=== PATIENT | female | born 1990 | race African-American/Black ===

== ENCOUNTER 2017-01-04 07:44 | Emergency (ER) | payer SELFPAY ==
[~2017-01-04] VITALS: Ht 154.9 cm; Wt 67.1 kg
[~2017-01-04 07:44] MED LIST: FLUT1DIS3 IH; NAPR500T PO
[2017-01-04] MEDS ORDERED: IPRATRPIUM/ALBUTEROL 0.5/2.5MG 3 ML NEBU. NEB ONE (08:15)
[2017-01-04] MEDS ORDERED: PREDNISONE 20 MG TABLET PO ONE (08:15)
[2017-01-04] MEDS ORDERED: PRED50TA PO (09:32)
[2017-01-04] MEDS ORDERED: OSEL75CA PO (09:32)
[2017-01-04] MEDS ORDERED: PROAIR HFA8.5 GM INH (09:32)
--- NOTE | 2017-01-04 09:33 | PHYS DOC ---
Past Medical History Past Medical History: Asthma Past Surgical History: No Surgical History Alcohol Use: None Drug Use: None Adult General Chief Complaint Chief Complaint: ASTHMA HPI HPI 26-year-old female presenting to the emergency department today with worsening asthma exacerbation. She comes in by EMS after receiving 2 DuoNeb's in route. She reports having a dry cough with rhinorrhea myalgias fevers and chills at home over the past 4-5 days. She is unsure whether she has had flu exposure recently. Onset today. Location lungs. Duration intermittent. Associated with wheezing. No specific timing present. Review of systems is negative for chest pain abdominal pain nausea vomiting diaphoresis. She denies constipation or diarrhea. All other review of systems is negative unless otherwise noted in history of present illness. Review of Systems Review of Systems SEE ABOVE. Current Medications Current Medications Current Medications Medications (Trade) Dose Ordered Sig/Yao Start Time Stop Time Status Last Admin Dose Admin Albuterol/ Ipratropium (Duoneb) 3 ml 1X ONCE 01/04/17 08:15 01/04/17 08:16 DC 01/04/17 08:19 3 ML Prednisone (Prednisone) 60 mg 1X ONCE 01/04/17 08:15 01/04/17 08:16 DC 01/04/17 08:16 60 MG Allergies Allergies Allergies Coded Allergies Type Severity Reaction Last Updated Verified No Known Drug Allergies 07/24/15 No Physical Exam Physical Exam Constitutional: Well developed, well nourished, non-toxic appearance. [] HENT: Normocephalic, atraumatic, bilateral external ears normal, oropharynx moist, no oral exudates, nose normal. Eyes: PERRLA, EOMI, conjunctiva normal, no discharge. [] Neck: Normal range of motion, no tenderness, supple, no stridor. Cardiovascular:Heart rate regular rhythm, no murmur [] Lungs & Thorax: Initial exam shows wheezing bilaterally without crackles. Mildly increased work of breathing. Abdomen: Bowel sounds normal, soft, no tenderness, no masses, no pulsatile masses. [] Skin: Warm, dry, no erythema, no rash. Back: No tenderness, no CVA tenderness. [] Extremities: No tenderness, no cyanosis, no clubbing, ROM intact, no edema. Neurologic: Alert and oriented X 3, normal motor function, normal sensory function, no focal deficits noted. [] Psychologic: Affect normal, judgement normal, mood normal. [] Current Patient Data Vital Signs Vital Signs Date Time Temp Pulse Resp B/P Pulse Ox O2 Delivery O2 Flow Rate FiO2 01/04/17 08:20 Room Air 01/04/17 07:49 98.1 92 22 126/67 97 98.1 EKG EKG [] Radiology/Procedures Radiology/Procedures [] Course & Med Decision Making Course & Med Decision Making Pertinent Labs and Imaging studies reviewed. (See chart for details) [] 26-year-old female presenting to the emergency department with her seeing asthma exacerbation. Initially she was wheezing on exam. Otherwise afebrile with normal heart rate. Duo neb given in the emergency department. On reexamination her wheezing improved significantly. She had normal work of breathing. She was feeling better and was comfortable with discharge. She was subsequent discharged home with prednisone and inhaler and given her signs and symptoms of flu with coexisting significant asthma I offered her Tamiflu. She was subsequently discharged home to follow up with her primary care provider over the next 2-3 days for continued evaluation workup and care. Dragon Disclaimer Dragon Disclaimer This electronic medical record was generated, in whole or in part, using a voice recognition dictation system. Departure Departure Impression: Primary Impression: Asthma exacerbation Additional Impression: Influenza Disposition: HOME, SELF-CARE Condition: STABLE Referrals: ARON LUGO MD (PCP) Patient Instructions: Asthma Attacks, Prevention, Asthma, Adult, Influenza, Adult Additional Instructions: Thank you for allowing us to participate in your care today. Followup with your primary care physician in 3 days if your symptoms do not improve. If you do not have a primary care provider you can ask for a list of our primary care providers. Return to the emergency department you have any new or concerning findings. This should be evaluated by the primary care physician and any necessary consulting services for continued management within a few days after discharge. Return to emergency room if you have any new or concerning symptoms including but not limited to fever, chills, nausea, vomiting, intractable pain, any new rashes, chest pain, shortness of air, uncontrolled bleeding, difficulty breathing, and/or vision loss. Scripts Prednisone 50 Mg Oipxah12 Mg PO DAILY #4 TAB Prov:CAROL HUERTA MD 01/04/17 Albuterol Sulfate (Proair Hfa Inhaler)8.5 Gm Hfa.aer.ad1 Puff INH PRN Q6HRS PRN SHORTNESS OF BREATH #1 INHALER Prov:CAROL HUERTA MD 01/04/17 Oseltamivir Phosphate (Tamiflu)75 Mg Capsule1 Cap PO BID #10 CAP Prov:CAROL HUERTA MD 01/04/17 Problem Qualifiers CAORL HUERTA MD Jan 04, 2017 09:32
[2017-01-04 10:00] VITALS: BP 133/72
== END 2017-01-04 10:15 | disposition home or self-care (01) ==
LOC: ER 07:44
DX: J45.901 Unspecified asthma with (acute) exacerbation (principal); J11.1 Influenza due to unidentified influenza virus with other respiratory manifestations
CPT/HCPCS: 94250; 94640; 99283; J7512; J7620

== ENCOUNTER 2017-06-02 01:00 | Emergency (ER) | payer SELFPAY ==
[~2017-06-02] VITALS: Ht 160 cm; Wt 67.1 kg
[~2017-06-02 01:00] MED LIST changes: +OSEL75CA PO; +PRED50TA PO; +PROAIR HFA8.5 GM INH
[2017-06-02] MEDS ORDERED: METH4TAB2 PO (01:35)
[2017-06-02] MEDS ORDERED: PROVENTIL HFA6.7 GM IH (01:35)
--- NOTE | 2017-06-02 01:36 | PHYS DOC ---
Past Medical History Past Medical History: Asthma Past Surgical History: No Surgical History Alcohol Use: None Drug Use: None Adult General Chief Complaint Chief Complaint: SHORTNESS OF BREATH HPI HPI Patient is a 27 year old female who presents with asthma exacerbation. She is out of her inhaler and she does own a nebulizer at home. She denies any fever. No productive cough. No recent travel. The heat has exacerbated her asthma she states Review of Systems Review of Systems Constitutional: Denies fever or chills Eyes: Denies change in visual acuity, redness, or eye pain HENT: Denies nasal congestion or sore throat Respiratory: shortness of breath and wheezing Cardiovascular: No chest pain. GI: Denies abdominal pain, nausea, vomiting, bloody stools or diarrhea : Denies dysuria or hematuria Musculoskeletal: Denies back pain or joint pain Integument: Denies rash or skin lesions Neurologic: Denies headache, focal weakness or sensory changes Current Medications Current Medications Current Medications Medications (Trade) Dose Ordered Sig/Yao Start Time Stop Time Status Last Admin Dose Admin Albuterol/ Ipratropium (Duoneb) 3 ml 1X ONCE 06/02/17 02:00 06/02/17 02:01 Prednisone (Prednisone) 60 mg 1X ONCE 06/02/17 02:00 06/02/17 02:01 Allergies Allergies Allergies Coded Allergies Type Severity Reaction Last Updated Verified No Known Drug Allergies 07/24/15 No Physical Exam Physical Exam Constitutional: Well developed, well nourished, no acute distress, non-toxic appearance. HENT: Normocephalic, atraumatic, TM clear bilaterally; bilateral external ears normal, oropharynx moist, no oral exudates, nose normal. Eyes: PERRLA, EOMI, conjunctiva normal, no discharge. Neck: Normal range of motion, no tenderness, supple, no stridor. Cardiovascular:Heart rate regular rhythm, no murmur Lungs & Thorax: Bilateral wheezing. Good air flow. Abdomen: Bowel sounds normal, soft, no tenderness, no masses, no pulsatile masses. [ Skin: Warm, dry, no erythema, no rash. Back: No tenderness, no CVA tenderness. Extremities: No tenderness, no cyanosis, no clubbing, ROM intact, no edema. Neurologic: Alert and oriented X 3, normal motor function, normal sensory function, no focal deficits noted. Psychologic: Affect normal, judgement normal, mood normal. Current Patient Data Vital Signs Vital Signs Date Time Temp Pulse Resp B/P (MAP) Pulse Ox O2 Delivery O2 Flow Rate FiO2 06/02/17 01:30 97.8 88 16 118/68 (85) 96 Room Air 97.8 Course & Med Decision Making Course & Med Decision Making Patient provided with the DuoNeb nebulizer here. He was given her initial dose of prednisone. No evidence of bacterial infection at this time. No need for antibiotics. Prescriptions written for inhaler with spacer and prednisone. Dragon Disclaimer Dragon Disclaimer This electronic medical record was generated, in whole or in part, using a voice recognition dictation system. Departure Departure Impression: Primary Impression: Asthma exacerbation Disposition: HOME, SELF-CARE Condition: GOOD Referrals: ARON LUGO MD (PCP) Patient Instructions: Asthma, Adult Scripts Methylprednisolone (MEDROL) 4 Mg Tab.ds.pk 1 PKG PO UD, #1 PKG Prov: ELDER TAMEZ MD 06/02/17 Albuterol Sulfate (PROVENTIL HFA INHALER) 6.7 Gm Hfa.aer.ad 1 PUFF IH PRN Q4HRS Y for FOR ASTHMA, #1 INHALER 2 Refills Prov: ELDER TAMEZ MD 06/02/17 ELDER TAMEZ MD Jun 02, 2017 01:36
[2017-06-02] MEDS ORDERED: predniSONE 20 MG TABLET PO ONE (02:00)
[2017-06-02] MEDS ORDERED: IPRATRPIUM/ALBUTEROL 0.5/2.5MG 3 ML NEBU. NEB ONE (02:00)
[2017-06-02 03:15] VITALS: BP 102/70
[2017-06-04] MEDS ORDERED: MOME17SP NS (10:52)
[2017-06-05] MEDS ORDERED: PRED-220 PO (12:14)
[2017-06-05] MEDS ORDERED: PROVENTIL HFA6.7 GM IH (12:15)
== END 2017-06-02 03:30 | disposition home or self-care (01) ==
LOC: ER 01:00
DX: J45.901 Unspecified asthma with (acute) exacerbation (principal)
CPT/HCPCS: 94250; 94640; 99283; J7512; J7620